=== PATIENT | female | born 1990 | race Caucasian/White ===

== ENCOUNTER 2018-08-07 11:03 | Emergency (ER) | payer OTHER ==
[2018-08-07 11:23] VITALS: BP 103/63
[2018-08-07] MEDS ORDERED: ACETAMINOPHEN ORAL SOLUTION 325 MG/10.15 ML CUP PO ONE (11:26)
[2018-08-07] MEDS ORDERED: LIDOCAINE HCL 2% VISC. ORAL 300MG/15ML UDC PO ONE (11:26)
--- NOTE | 2018-08-07 11:26 | ED Physician Documentation ---
Sore Throat/Dental Pain - HPI Stated Complaint: Dental Pain Chief Complaint: Dental Pain Additional Information: Patient presents to ED with a 2 day history of right lower dental pain. Patient states the tooth broke off about 2 weeks ago and with the holidays she did not get in to see a dentist. The pain started a couple of days ago and she thinks it is infected because she has a bad taste in her mouth. Onset: days ago (2) Context: Fractured Tooth (2 weeks ago) Associated Symptoms: denies: fever, sore throat - ROS CONST: no problems CVS/RESP: none GI/: denies: nausea, vomiting MS/SKIN/LYMPH: denies: muscle aches NEURO/PSYCH: denies: headache - PAST HX Past History: none Other History: none Allergies/Adverse Reactions: Allergies Allergy/AdvReac Type Severity Reaction Status Date / Time No Known Allergies Allergy Verified 08/07/18 11:46 Home Medications: Ambulatory Orders Medication Instructions Recorded Clindamycin HCl [Cleocin] 300 mg PO QID #40 capsule 08/07/18 Tramadol HCl [Ultram] 50 mg PO TID PRN #15 tablet 08/07/18 - SOCIAL HX Smoking History: non-smoker Alcohol Use: none Drug Use: none - FAMILY HX Family History: No - VITAL SIGNS Vital Signs: Vital Signs Temp Pulse Resp BP Pulse Ox 80 15 103/63 99 08/07/18 11:15 08/07/18 11:15 08/07/18 11:15 08/07/18 11:15 - REVIEWED ASSESSMENTS Nursing Assessment Reviewed: Yes Vitals Reviewed: Yes Dental Pain Physical Exam - EXAM General Appearance: alert Head/Neck: head nml inspection Eyes: PERRL Mouth/Throat: dental tenderness (right lower/ tooth fracture) Ear/Nose: nml inspection Respiratory: no resp. distress CVS: reg. rate & rhythm, heart sounds nml Abdomen: soft, normal bowel sounds Extremities: non-tender Skin: warm/dry Neuro/Psych: none Discharge Clincal Impression: Pain, dental Prescriptions: Clindamycin HCl [Cleocin] 300 mg PO QID #40 capsule Tramadol HCl [Ultram] 50 mg PO TID PRN #15 tablet PRN Reason: dental pain Referrals: Primary Doctor,No [Primary Care Provider] - 2 Days Additional Instructions: 1. Tylenol and/or Ibuprofen as needed for pain. You may take these medications together at the same time for better pain control. 2. Rinse your mouth with 1 tsp salt/1 tsp baking soda in 1 cup warm water after every meal and snacks. 3. Follow up with a dentist as soon as possible 4. Follow up with PCP within 3 days. 5. Return to the ED with fever >101.0, increased facial swelling, difficulty swallowing or shortness of breath, or any new or worsening symptoms Condition: Stable Disposition: 01 HOME, SELF-CARE Decision to Admit: NO Date of Decison to Admit: 08/07/18 Decision Time: 11:54
== END 2018-08-07 12:05 | disposition home or self-care (01) ==
LOC: ED 11:03
DX: K08.89 Other specified disorders of teeth and supporting structures (principal)
CPT/HCPCS: 99282; 99283; A9270